=== PATIENT | female | born 1995 | race Caucasian/White ===

== ENCOUNTER → 2018-05-28 | Outpatient (CLI) | payer OTHER, BC ==
[2018-05-28 13:39] LABS: BASO % 0.2 % (0.0-1.0); EOS # 0.2 10^3/uL (0.0-0.50); EOS % 1.9 % (0.0-3.0); HEMATOCRIT 37.2 % (36.0-47.0); HEMOGLOBIN 12.5 g/dl (12.0-15.5); IMMATURE GRANULOCYTE % 0.7 % (0-3.0); LYMPH # 1.8 10^3/uL (1.5-6.5); LYMPH % 18.7 % (24.0-44.0); MEAN CORPUSCULAR HEMOGLOBIN 31.7 pg (27.0-33.0); MEAN CORPUSCULAR HGB CONC 33.6 g/dl (32.0-36.5); MEAN CORPUSCULAR VOLUME 94.4 fl (80.0-96.0); MONO # 0.7 10^3/uL (0.0-0.8); MONO % 7.2 % (0.0-5.0); NEUTROPHILS # 6.8 10^3/uL (1.8-7.7); NEUTROPHILS % 71.3 % (36.0-66.0); PLATELET COUNT, AUTOMATED 245 10^3/uL (150-450); RED BLOOD COUNT 3.94 10^6/uL (4.00-5.40); RED CELL DISTRIBUTION WIDTH 12.4 % (11.5-14.5); WHITE BLOOD COUNT 9.5 10^3/uL (4.0-10.0)
[2018-05-28 15:07] LABS: CHLAMYDIA DNA AMPLIFICATION NEGATIVE (NEGATIVE); GC DNA AMPLIFICATION NEGATIVE (NEGATIVE)
[2018-05-28 15:15] LABS: HBsAg Prenatal NEGATIVE (NEGATIVE); HIV 1&2 SCREEN CENTAUR NEGATIVE (NEGATIVE); RUBELLA IgG QUALITATIVE IMMUNE (IMMUNE)
[2018-05-28 15:15] LABS: HEPATITIS C VIRUS ABY INDEX 0.1 INDEX (<0.8)
== END ==
LOC: M SMT 11:16
DX: Z34.00 Encounter for supervision of normal first pregnancy, unspecified trimester (principal); Z3A.08 8 weeks gestation of pregnancy
CPT/HCPCS: 86762

== ENCOUNTER 2018-08-16 18:12 | Emergency (ER) | payer OTHER ==
[2018-08-16 19:33] LABS: APPEARANCE, URINE CLEAR (CLEAR); BACTERIA, URINE AUTO 2+ (NEGATIVE); BILIRUBIN, URINE AUTO NEGATIVE (NEGATIVE); BLOOD, URINE BLOOD NEGATIVE (NEGATIVE); COLOR, URINE STRAW (YELLOW); GLUCOSE, URINE (UA) AUTO NEGATIVE (NEGATIVE); KETONE, URINE AUTO NEGATIVE (NEGATIVE); LEUKOCYTE ESTERASE, URINE AUTO TRACE (NEGATIVE); NITRITE, URINE AUTO NEGATIVE (NEGATIVE); PROTEIN, URINE AUTO NEGATIVE (NEGATIVE); RBC, URINE AUTO 3 /HPF (0-3); SPECIFIC GRAVITY URINE AUTO 1.005 (1.002-1.035); SQUAMOUS EPITHELIAL CELL UR AU 1 /HPF (0-6); UROBILINOGEN, URINE AUTO 0.2 mg/dL (0.0-2.0); WBC, URINE AUTO 2 /HPF (0-3)
== END 2018-08-16 20:45 | disposition home or self-care (01) ==
LOC: M ED 18:12
DX: O99.89 Other specified diseases and conditions complicating pregnancy, childbirth and the puerperium (principal); M54.5 Low back pain; V49.50XA Passenger injured in collision with unspecified motor vehicles in traffic accident, initial encounter; O99.52 Diseases of the respiratory system complicating childbirth; J45.909 Unspecified asthma, uncomplicated
CPT/HCPCS: 76815

== ENCOUNTER → 2018-08-23 | Outpatient (CLI) | payer OTHER | LOC: M RAD 17:07 | DX: Z36.89 Encounter for other specified antenatal screening (principal); Z3A.20 20 weeks gestation of pregnancy | CPT/HCPCS: 76811 ==

== ENCOUNTER → 2018-10-01 | Outpatient (CLI) | payer OTHER, BC ==
[2018-10-01 14:38] LABS: HEMATOCRIT 32.9 % (36.0-47.0); HEMOGLOBIN 11.2 g/dl (12.0-15.5); MEAN CORPUSCULAR HEMOGLOBIN 32.5 pg (27.0-33.0); MEAN CORPUSCULAR VOLUME 95.4 fl (80.0-96.0); PLATELET COUNT, AUTOMATED 253 10^3/uL (150-450); RED BLOOD COUNT 3.45 10^6/uL (4.00-5.40); WHITE BLOOD COUNT 10.6 10^3/uL (4.0-10.0)
== END ==
LOC: M LAB 12:56
PROVIDERS: ATTEND Advanced Practice Midwife
DX: Z34.82 Encounter for supervision of other normal pregnancy, second trimester (principal)

== ENCOUNTER → 2018-10-04 | Outpatient (CLI) | payer BC, OTHER | LOC: M LAB 08:15 | PROVIDERS: ATTEND Advanced Practice Midwife | DX: R73.02 Impaired glucose tolerance (oral) (principal) ==

== ENCOUNTER → 2018-12-05 | Outpatient (REF) | payer BC, OTHER | LOC: M LAB REF 17:10 | PROVIDERS: ATTEND Obstetrics & Gynecology | DX: Z34.03 Encounter for supervision of normal first pregnancy, third trimester (principal); Z3A.00 Weeks of gestation of pregnancy not specified ==

== ENCOUNTER → 2018-12-06 | Outpatient (CLI) | payer BC, OTHER ==
[~2018-12-06] MED LIST: PRENTAB9 PO; TYLE325T5 PO
== END ==
LOC: M SMT 13:12
PROVIDERS: ATTEND Obstetrics & Gynecology
DX: Z34.03 Encounter for supervision of normal first pregnancy, third trimester (principal); Z3A.00 Weeks of gestation of pregnancy not specified

== ENCOUNTER 2018-12-13 06:03 | Outpatient (CLI) | payer BC, OTHER ==
[~2018-12-13] VITALS: Ht 170.2 cm; Wt 82.0 kg
[2018-12-13 06:20] VITALS: BP 126/79
[2018-12-13] MEDS ORDERED: PRENTAB9 PO (06:24)
[2018-12-13] MEDS ORDERED: TYLE325T5 PO (06:24)
[2018-12-13 07:28] VITALS: BP 133/74
== END 2018-12-13 07:40 | disposition home or self-care (01) ==
LOC: M LDO 06:03
PROVIDERS: ATTEND Specialist
DX: O32.1XX0 Maternal care for breech presentation, not applicable or unspecified (principal); Z3A.37 37 weeks gestation of pregnancy

== ENCOUNTER 2019-01-10 00:01 | Inpatient (IN) | payer BC, OTHER ==
[~2019-01-10] VITALS: Ht 170.2 cm; Wt 86.3 kg
[2019-01-10] VITALS (17 sets, daily range): BP systolic 116–135; BP diastolic 56–89
[2019-01-10] MEDS: miSOPROStol 50 MCG 1/2 TAB (S0191) PO SCH ×5 (01:34→17:30)
[2019-01-10 01:42] LABS: HEMATOCRIT 36.3 % (36.0-47.0); HEMOGLOBIN 12.1 g/dl (12.0-15.5); MEAN CORPUSCULAR HEMOGLOBIN 31.5 pg (27.0-33.0); MEAN CORPUSCULAR HGB CONC 33.3 g/dl (32.0-36.5); MEAN CORPUSCULAR VOLUME 94.5 fl (80.0-96.0); PLATELET COUNT, AUTOMATED 233 10^3/uL (150-450); RED BLOOD COUNT 3.84 10^6/uL (4.00-5.40)
--- NOTE | 2019-01-10 06:33 | HPE ---
DATE OF ADMISSION: 01/10/2019 HISTORY: Tommy is a 23-year-old 1, para 0 at 41-1/7 weeks gestation with an estimated date of confinement (EDC) of 01/02/2019 based on last menstrual period confirmed by first trimester ultrasound. She presents to labor and delivery today for induction of labor due to post-term per consult with Dr. Idalia Goldman. She denies any regular painful contractions, leakage of fluid or vaginal bleeding. The fetus has been active. Her care was initiated at a woman's perspective in the first trimester. course has been uncomplicated. OBSTETRICAL HISTORY: [facility] obstetric labs O+, antibody screen negative, rubella immune, VDRL nonreactive. Urine culture no growth. Hep B surface antigen negative, HIV negative. Hep C antibody nonreactive. Gonorrhea and chlamydia negative. She declined genetic serum screening labs. Her gestational diabetic screening was elevated at 143, 3-hour glucose tolerance test normal, fasting 80, one hour 106, two hour 91, three hour 85. Her GBS is negative. PAST MEDICAL HISTORY: 1. Seasonal allergies. 2. Exercise-induced asthma. 3. Childhood varicella. PAST SURGICAL HISTORY: 1. Eye surgery. 2. [place] tooth extraction. FAMILY HISTORY: Diabetes, hypertension, and heart disease. SOCIAL HISTORY: The patient is . Her is at bedside and supportive. She is a nonsmoker. Denies alcohol and drug use. No history of any sexually transmitted infections and she denies history of abuse physical, sexual and emotional allergies. ALLERGIES: No known drug allergies. CURRENT MEDICATIONS: - vitamins OBJECTIVE: Vital signs: Temperature 98.4, pulse 83, respirations 18, blood pressure (BP) is 133/79. She is alert and oriented times three. heart rate is 140 with moderate variability, positive accelerations noted. No decelerations noted. Contractions every 3-4 minutes palpate mild. Sterile vaginal exam: 1 cm dilated, 50% effaced, minus three station, posterior moderate texture. No show with exam. Her abdomen is gravid, cephalic presentation. ASSESSMENT: 1. Intrauterine at 41-1/7 weeks. 2. heart rate category one. 3. Post-term . PLAN: Admit the patient to labor and delivery. Routine labs. Saline lock. Regular diet at this time. Start misoprostol 50 mcg by mouth for cervical ripening. I did the review risks, benefits and alternatives with the patient regarding induction of labor. All of the patient and her 's questions have been answered. She has been verbally consented for emergency surgery and blood products if necessary. She is considering an epidural when she is in active labor. I do anticipate cervical ripening.
--- NOTE | 2019-01-10 14:58 | NUR ---
L&D Note: S: Doing well w/o complaints. Pain is manageable. O: vss, AF FHR 140s, moderate variability and spont accelerations. Contractions q3-4mins Gen: well appearing cx: 50/-2 Cook cath placed 60/30ml A/P: 23yo at 41 wks undergoing IOL reassuring status -will reevaluate in 4-5 hrs, or after cook cath comes out -good candidate for epidural Idalia Goldman MD
[2019-01-10] MEDS ORDERED: LR 1,000 ML IV SCH (19:03)
[2019-01-10] MEDS ORDERED: OXYTOCIN DRIP 30 UNITS in APPROPRIATE DILUENT 1 EA IV SCH (19:15)
[2019-01-10] MEDS ORDERED: BUTORPHANOL 2 MG/ML INJ (J0595) IV ONE (23:00)
[2019-01-10] MEDS ORDERED: PROMETHAZINE INJ 25 MG/ML VIAL (J2550) IV ONE (23:00)
[2019-01-11] VITALS (13 sets, daily range): BP systolic 122–152; BP diastolic 64–86
[2019-01-11] MEDS ORDERED: OXYTOCIN DRIP 30 UNITS in APPROPRIATE DILUENT 1 EA IV SCH (03:01)
[2019-01-11] MEDS ORDERED: MOM 30ML SUSPENSION UDC PO PRN (03:15)
[2019-01-11] MEDS ORDERED: MEASLES,MUMPS,RUBELLA VACCINE INJ (MMR-II) (90707) SC SCH (03:15)
[2019-01-11] MEDS ORDERED: ACETAMINOPHEN TAB 650MG DOSE (2X325MG) PO PRN (03:15)
[2019-01-11] MEDS ORDERED: IBUPROFEN 800 MG TAB PO PRN (03:15)
[2019-01-11] MEDS ORDERED: DOCUSATE SODIUM 100 MG CAP PO PRN (03:15)
[2019-01-11] MEDS ORDERED: ONDANSETRON 4MG/2ML VIAL (J2405) IV PRN (03:15)
[2019-01-11] MEDS ORDERED: METHYLERGONOVINE MALEATE 0.2 MG TAB PO PRN (03:15)
[2019-01-11] MEDS ORDERED: IBUPROFEN 600 MG TAB PO PRN (03:15)
[2019-01-11] MEDS ORDERED: LIDOCAINE 1% MDV 20ML VIAL INFIL ONE (03:15)
[2019-01-11] MEDS ORDERED: DIBUCAINE 1% OINTMENT 30GM TOP PRN (03:15)
[2019-01-11] MEDS ORDERED: RHOGAM 300 MCG (1500 IU) INJ (J2790) IM SCH (03:15)
[2019-01-11] MEDS ORDERED: ACETAMINOPHEN 500 MG TAB PO PRN (03:15)
--- NOTE | 2019-01-11 06:36 | DN ---
DATE OF DELIVERY: 01/11/2019 TIME OF : 0224 hours GENDER: Female. SCORES: 9 and 9. WEIGHT: 7 pounds 8 ounces or 3400 grams. LACERATIONS: Second-degree midline laceration. ANESTHESIA: None. ESTIMATED BLOOD LOSS: 300 mL. COUNTS: Five laparotomy sponges accounted for prior to and after delivery. Three sharps were removed from delivery field. DELIVERY NOTE: On 01/11/2019 at 0224 hours, Mrs. Prakash, a 23-year-old, 1, now para 1, had a spontaneous vaginal delivery of a live born female , scores 9 and 9; weight was 7 pounds 8 ounces or 3400 grams. Head was delivered occiput anterior (OA), followed by delivery of right anterior shoulder, left posterior shoulder, and corpus. Infant was handed to mom with a good cry. Cord was clamped times two and was cut by the father of the baby under my direction. Placenta was then drained and delivered grossly intact. A premixed bag of 500 mL of normal saline with 30 units of Pitocin was then bolused along with uterine massage until the uterus was firm. On inspection, there was second-degree midline laceration, which was repaired with #3-0 Vicryl Rapide. On re-inspection, cervix, vagina, and perineum were grossly intact and hemostatic. Mom and baby were recovering in stable condition. The couple has decided to name their daughter Maura. Edited: [facility] 01/13/2019 [id number]
[2019-01-11] MEDS: PRENATAL VITAMINS CHEWABLE TABLET PO SCH (10:04)
[2019-01-12 06:00] VITALS: BP 122/77
[2019-01-12] MEDS: PRENATAL VITAMINS CHEWABLE TABLET PO SCH (08:13)
[2019-01-12] MEDS ORDERED: QC A650T3 PO (11:47)
[2019-01-12] MEDS ORDERED: IBUP-1022 PO (11:47)
== END 2019-01-12 12:50 | disposition home or self-care (01) | DRG 560 ==
LOC: M LDI 00:01 → M OBS 01-11 04:28
PROVIDERS: ADMIT Advanced Practice Midwife; ATTEND Obstetrics & Gynecology
PROC: 10E0XZZ Delivery of Products of Conception, External Approach (ICD-10-PCS; principal; 2019-01-10)
PROC: 0KQM0ZZ Repair Perineum Muscle, Open Approach (ICD-10-PCS; 2019-01-10)
PROC: 3E0P7GC Introduction of Other Therapeutic Substance into Female Reproductive, Via Natural or Artificial Opening (ICD-10-PCS; 2019-01-10)
DX: O48.0 Post-term pregnancy (principal); Z3A.41 41 weeks gestation of pregnancy; O70.1 Second degree perineal laceration during delivery; Z37.0 Single live birth

== ENCOUNTER → 2019-02-20 | Outpatient (CLI) | payer BC, OTHER ==
[~2019-02-20] MED LIST changes: +IBUP-1022 PO; +QC A650T3 PO
== END ==
LOC: M SMT 14:03
PROVIDERS: ATTEND Obstetrics & Gynecology
DX: Z84.81 Family history of carrier of genetic disease (principal)

== ENCOUNTER → 2019-04-09 | Outpatient (REF) | payer BC, OTHER ==
[2019-04-09 15:54] LABS: CHLAMYDIA DNA AMPLIFICATION NEGATIVE (NEGATIVE); GC DNA AMPLIFICATION NEGATIVE (NEGATIVE)
== END ==
LOC: M LAB REF 13:28
PROVIDERS: ATTEND Advanced Practice Midwife
DX: Z11.3 Encounter for screening for infections with a predominantly sexual mode of transmission (principal)

== ENCOUNTER → 2019-06-24 | Outpatient (REF) | payer BC, OTHER | LOC: M LAB REF 10:50 | PROVIDERS: ATTEND Advanced Practice Midwife | DX: Z12.4 Encounter for screening for malignant neoplasm of cervix (principal) ==

== ENCOUNTER → 2020-02-04 | Outpatient (CLI) | payer OTHER ==
[2020-02-04 16:30] LABS: BASO % 0.3 % (0.0-1.0); EOS # 0.2 10^3/uL (0.0-0.5); EOS % 3.6 % (0.0-3.0); HEMOGLOBIN 13.3 g/dl (12.0-15.5); LYMPH # 2.2 10^3/uL (1.5-5.0); MEAN CORPUSCULAR HEMOGLOBIN 30.9 pg (27.0-33.0); MEAN CORPUSCULAR HGB CONC 33.3 g/dl (32.0-36.5); MEAN CORPUSCULAR VOLUME 92.8 fl (80.0-96.0); MONO # 0.7 10^3/uL (0.0-0.8); MONO % 10.4 % (0.0-5.0); NEUTROPHILS # 3.5 10^3/uL (1.5-8.5); NEUTROPHILS % 52.4 % (36.0-66.0); PLATELET COUNT, AUTOMATED 255 10^3/uL (150-450); RED BLOOD COUNT 4.31 10^6/uL (4.00-5.40); WHITE BLOOD COUNT 6.6 10^3/uL (4.0-10.0)
[2020-02-04 16:55] LABS: BLOOD UREA NITROGEN 19 MG/DL (7-18); CALCIUM LEVEL 9.3 MG/DL (8.5-10.1); CARBON DIOXIDE LEVEL 28 MEQ/L (21-32); CHLORIDE LEVEL 106 MEQ/L (98-107); CREATININE FOR GFR 0.74 MG/DL (0.55-1.30); FREE T4 0.93 NG/DL (0.76-1.46); GLOMERULAR FILTRATION RATE > 60.0 (>60); GLUCOSE, FASTING 81 MG/DL (70-100); POTASSIUM SERUM 4.1 MEQ/L (3.5-5.1); SODIUM LEVEL 139 MEQ/L (136-145)
== END ==
LOC: M LAB 15:33
PROVIDERS: ATTEND Nurse Practitioner Family
DX: R53.83 Other fatigue (principal)